=== PATIENT | female | born 1955 | race Hispanic/Latino ===

== ENCOUNTER 2018-03-29 11:10 | Outpatient (CLI) | payer OTHER ==
--- NOTE | 2018-03-30 09:00 | PET ---
PET CT: HISTORY: 63-year-old female with lymphoma. Patient had last chemotherapy on 09/22/17. Exam requested for resta ging. COMPARISON: PET CT dated 09/27/17 from [place], [place]. TECHNIQUE: PET scanning with CT attenuation correction was performed from the base of the brain through the prox imal thighs following the intravenous administration of 12.6 mCi F18-FDG. Imaging was performed after an uptake interval of 53 minutes. FINDINGS: Interval brice hypermetabolism has developed in the hilar regions bilaterally with a maximum SUV of 4 on the right and 3 on the left. No hypermetabolic lymph nodes are seen in the neck, axilla, mediasti num, abdomen, pelvis, or inguinal regions. There is diffusely increased FDG uptake in the spleen with a SUV of 8.8, also new since the previous exam. No hypermetabolic lung nodules, liver, adrenal, or skeletal lesion are seen. There is physiologic activity in the GI and tracts, and the visualized portions of the brain. The CT scan used for attenuation correction demonstrates no evidence of pleural effusions or ascites. Numerous tiny lung nodules are seen with right upper lobe dominance. IMPRESSION: Findings consistent with progressive metabolic disease. Deauville score 5. POS: [facility]
== END 2018-03-29 11:11 | disposition home or self-care (01) ==
LOC: PET 11:10
PROVIDERS: ATTEND Internal Medicine Hematology & Oncology
DX: C84.43 Peripheral T-cell lymphoma, not elsewhere classified, intra-abdominal lymph nodes (principal)
CPT/HCPCS: 78815; A9552

== ENCOUNTER 2018-09-06 11:54 | Outpatient (CLI) | payer OTHER ==
--- NOTE | 2018-09-06 15:29 | PET ---
PET CT FROM SKULL TO MID THIGHS: INDICATION: History of non-Hodgkin's lymphoma. RADIOPHARMACEUTICAL: 11.6 mCi F18-FDG IV. TECHNIQUE: PET CT images were obtained from the skull to mid thighs following the IV introduction of the radioph armaceutical. CT images were obtained for correction purposes only. Comparison made with most recent PET CT evaluation dated 03/29/18. FINDINGS: The biodistribution for the examination appears acceptable. Head/Neck: No hypermetabolic lymphadenopathy or mass is identified. Thorax: No hypermetabolic lymphadenopathy, pulmonary nodule, or pleural effusion is identified. There are cor onary artery thoracic aortic calcifications No residual activity is seen within the hilar regions. Th ere is a calcified granuloma within the right lower lobe. Abdomen/Pelvis: No hypermetabolic mass or lymphadenopathy is evident. No hypermetabolic ascites is noted. There is ba ckground activity within the renal excretory system and the GI system. Skin/Osseous Structures: No hypermetabolic skin or osseous lesion is identified. IMPRESSION: Deauville criteria score of 1: Complete metabolic response. POS: [facility]
== END 2018-09-06 11:55 | disposition home or self-care (01) ==
LOC: PET 11:54
PROVIDERS: ATTEND Internal Medicine Hematology & Oncology
DX: C85.90 Non-Hodgkin lymphoma, unspecified, unspecified site (principal)
CPT/HCPCS: 78815; A9552

== ENCOUNTER 2019-04-18 13:56 | Outpatient (CLI) | payer OTHER ==
--- NOTE | 2019-04-18 11:59 | PET ---
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 PET scan and attenuation correction CT performed from skull base to proximal thighs. FINDINGS: SUV (standard uptake values) numbers given are maximum SUVs. QCLR used. New finding of symmetrically increased uptake in the region of the bilateral palatine tonsils with PELAEZ V 7.5, nonspecific. No other abnormally hypermetabolic activity in the neck, chest, abdomen, or pelvis. IMPRESSION: 1) nonspecific finding of hypermetabolic activity in the bilateral palatine tonsils. 2) otherwise negative. Excluding the tonsillar activity, this remains a Deauville criteria score 1.
== END 2019-04-18 13:57 | disposition home or self-care (01) ==
LOC: PET 13:56
PROVIDERS: ATTEND Internal Medicine Hematology & Oncology
DX: C84.40 Peripheral T-cell lymphoma, not elsewhere classified, unspecified site (principal)
CPT/HCPCS: 78815; A9552